=== PATIENT | female | born 1985 | race Caucasian/White ===

== ENCOUNTER 2017-12-29 14:14 | Emergency (ER) | payer OTHER ==
[2017-12-29 14:44] LABS: #Basophils 0.1 thou/uL (0.0-0.2); #Eosinphils 0.2 thou/uL (0.0-0.7); #Lymphocytes 2.7 thou/uL (1.20-3.40); #Monocytes 0.6 thou/uL (0.11-0.59); #Neutrophils 7.8 thou/uL (1.40-6.50); %Basophils 0.5 % (0.0-1.0); %Eosinophils 1.4 % (0.0-10.0); %Lymphocytes 23.7 % (21.0-51.0); %Monocytes 5.1 % (0.0-10.0); %Neutrophils 69.3 % (42.0-75.0); Mean Corpuscular HGB CONC 35.1 g/dL (32.0-36.0); Mean Corpuscular Hemoglobin 29.9 pg (27.0-31.0); Mean Corpuscular Volume 85.1 fL (78.0-98.0); Platelet Count 304 thou/uL (130-400); RBC Distribution Width 11.7 % (11.5-14.5); Red Blood Cell (RBC) Count 4.34 mill/uL (4.20-5.40); White Blood Cell (WBC) Count 11.2 thou/uL (4.8-10.8)
[2017-12-29 15:05] LABS: ALT (SGPT) 8 U/L (8-55); AST (SGOT) 12 U/L (5-34); Alkaline Phosphatase 80 U/L (40-150); Anion Gap 14 mmol/L (10-20); BUN (Urea Nitrogen) 10 mg/dL (7.0-18.7); Bilirubin, Total 0.6 mg/dL (0.2-1.2); CK (CPK) 46 U/L (29-168); Calc. Creatinine Clearance 0 mL/min (70-130); Carbon Dioxide 26 mmol/L (22-29); Chloride 102 mmol/L (98-107); Estimated GFR-MDRD 69; Globulin 2.6 g/dL (2.4-3.5); Glucose 161 mg/dL (70-105); Lipase 25 U/L (8-78); Potassium 3.9 mmol/L (3.5-5.1); Protein, Total 6.6 g/dL (6.0-8.3); Sodium 138 mmol/L (136-145)
[2017-12-29 15:09] LABS: CKMB 0.6 ng/mL (0-6.6); Troponin I Less than 0.010 ng/mL (< 0.028)
--- NOTE | 2017-12-29 15:55 | RAD ---
CHEST ONE VIEW PORTABLE: 12/29/17 HISTORY: 32-year-old female with history of chest pain, left sided with shortness of breath for four days. Heart size is within normal limits. The lungs are clear. No pneumonia, edema, or pleural effusion, or other acute intrathoracic disease. POS: [facility]
[2017-12-29] MEDS ORDERED: Mag-Al 1200 mg/1200 mg/30 ML UDCUP ONE (17:25)
[2017-12-29] MEDS ORDERED: Lidocaine Viscous Sol 2% 15 ml UD Cup ONE (17:25)
[2017-12-29] MEDS ORDERED: Morphine 10 MG/ML VIAL ONE (17:57)
[2017-12-29 18:39] LABS: Troponin I Less than 0.010 ng/mL (< 0.028)
[2017-12-29] MEDS ORDERED: Ketorolac Tromethamine 30 MG/ML VIAL ONE (18:43)
== END 2017-12-29 19:22 | disposition home or self-care (01) ==
LOC: ERS 14:14
DX: R09.1 Pleurisy (principal); R07.89 Other chest pain; J45.909 Unspecified asthma, uncomplicated; F32.9 Major depressive disorder, single episode, unspecified
CPT/HCPCS: 36415; 71045; 80053; 82553; 83690; 84484; 85025; 85379; 93005; 96372; J1885; J2270

== ENCOUNTER 2018-01-11 11:26 | Outpatient (CLI) | payer OTHER | END 2018-01-11 11:27 | disposition home or self-care (01) | LOC: DTY/OP 11:26 | PROVIDERS: ATTEND Surgery | DX: E66.01 Morbid (severe) obesity due to excess calories (principal) | CPT/HCPCS: 97802 ==

== ENCOUNTER 2018-04-08 15:41 | Outpatient (CLI) | payer OTHER ==
[2018-04-08 17:07] LABS: #Basophils 0.1 thou/uL (0.0-0.2); #Eosinphils 0.1 thou/uL (0.0-0.7); #Lymphocytes 2.5 thou/uL (1.20-3.40); #Monocytes 0.5 thou/uL (0.11-0.59); #Neutrophils 5.1 thou/uL (1.40-6.50); %Eosinophils 1.7 % (0.0-10.0); %Lymphocytes 30.3 % (21.0-51.0); Hemoglobin 13.9 g/dL (12.0-16.0); Mean Corpuscular HGB CONC 33.9 g/dL (32.0-36.0); Mean Corpuscular Hemoglobin 28.9 pg (27.0-31.0); Mean Corpuscular Volume 85.3 fL (78.0-98.0); Mean Platelet Volume 7.4 fL (7.4-10.4); Platelet Count 350 thou/uL (130-400); RBC Distribution Width 12.1 % (11.5-14.5); White Blood Cell (WBC) Count 8.3 thou/uL (4.8-10.8)
[2018-04-08 17:20] LABS: Hemoglobin A1c 5.5 % (4.0-6.0)
[2018-04-08 17:23] LABS: BHCG - Serum Negative (NEGATIVE); Pregs Control Background? CLEAR/WHITE (CLR/WHITE); Pregs Control Bar Appear? YES (CONTROL BAR)
[2018-04-08 17:30] LABS: ALT (SGPT) 10 U/L (8-55); AST (SGOT) 14 U/L (5-34); Albumin 4.1 g/dL (3.5-5.0); Alkaline Phosphatase 79 U/L (40-150); Anion Gap 10 mmol/L (10-20); BUN (Urea Nitrogen) 8 mg/dL (7.0-18.7); Bilirubin, Direct 0.3 mg/dL (0.1-0.3); Bilirubin, Total 0.7 mg/dL (0.2-1.2); Calc. Creatinine Clearance 0 mL/min (70-130); Calcium 9.1 mg/dL (7.8-10.44); Carbon Dioxide 27 mmol/L (22-29); Chloride 103 mmol/L (98-107); Estimated GFR-MDRD 84; Globulin 3.1 g/dL (2.4-3.5); Glucose 101 mg/dL (70-105); Potassium 3.6 mmol/L (3.5-5.1); Protein, Total 7.2 g/dL (6.0-8.3); Sodium 136 mmol/L (136-145)
== END 2018-04-08 15:42 | disposition home or self-care (01) ==
LOC: LABBT 15:41
PROVIDERS: ATTEND Surgery
DX: Z01.812 Encounter for preprocedural laboratory examination (principal); E66.01 Morbid (severe) obesity due to excess calories
CPT/HCPCS: 80053; 80076; 83036; 84703; 85025

== ENCOUNTER 2018-04-08 16:30 | Inpatient (IN) | payer OTHER ==
[2018-04-18] MEDS ORDERED: Heparin 5,000 UNITS/ML VIAL ONE (07:06)
[2018-04-18] MEDS ORDERED: Levofloxacin 500 mg/D5W 100 ml Premix Bag ONE (07:06)
[2018-04-18] MEDS ORDERED: Clindamycin/D5W 900 mg/50 ml Premix Bag ONE (07:07)
[2018-04-18] MEDS ORDERED: Bupivacaine/Epinephrine 0.25% 30 ML VIAL ONE (08:24)
[2018-04-18] MEDS ORDERED: Fentanyl 250 MCG/5 ML VIAL ONE (08:40)
[2018-04-18] MEDS ORDERED: Hydrocodone-Acetamin 15 ML UDCUP PO PRN (10:00)
[2018-04-18] MEDS ORDERED: Promethazine HCl 25 MG/ML VIAL IM PRN ×3 (10:00→10:44)
[2018-04-18] MEDS ORDERED: Dextrose 50% Abboject 50 ML SYRINGE SLOW IVP PRN (10:00)
[2018-04-18] MEDS ORDERED: hydrALAZINE 20 MG/ML VIAL SLOW IVP PRN (10:00)
[2018-04-18] MEDS ORDERED: Ondansetron PF 4 MG/2 ML Vial IVP PRN ×2 (10:00→10:44)
[2018-04-18] MEDS ORDERED: Dextrose 5% in Water 1,000 ML IV PRN (10:00)
[2018-04-18] MEDS ORDERED: diphenhydrAMINE 50 MG/ML VIAL IVP PRN ×2 (10:00→10:44)
[2018-04-18] MEDS ORDERED: Meperidine HCl/PF 25 MG/ML VIAL SLOW IVP PRN (10:13)
[2018-04-18] MEDS ORDERED: Promethazine HCl 25 MG/ML VIAL SLOW IVP PRN (10:13)
[2018-04-18] MEDS ORDERED: Ondansetron HCl/PF 4 MG/2 ML Vial IVP PRN (10:13)
[2018-04-18] MEDS ORDERED: Fentanyl 100 MCG/2 ML VIAL ONE (10:28)
[2018-04-18] MEDS ORDERED: Promethazine HCl 25 MG/ML VIAL ONE (10:28)
--- NOTE | 2018-04-18 10:29 | OP ---
DATE OF PROCEDURE: 04/18/2018 PREOPERATIVE DIAGNOSIS: Morbid obesity. PROCEDURES PERFORMED: Laparoscopic sleeve gastrectomy and esophagogastroscopy. INDICATIONS: A 32-year-old female, morbidly obese, who has attempted multiple weight loss programs without success. FINDINGS: A 38-[place] bougie was used. DESCRIPTION OF PROCEDURE: After informed consent was obtained, the patient was taken to the operating room and given general endotracheal anesthesia, placed in supine position. Abdomen was prepped and draped in usual fashion. Local anesthesia was infiltrated subcutaneously and deep, and a 12 mm incision was performed approximately 8-inch below the xiphoid slightly to the left. Veress needle inserted. Drop test performed. Pneumoperitoneum was created to a volume of 2 L of carbon dioxide. Utilizing a bladeless 12 mm trocar and 0-degree laparoscope, direct visual entry into the abdominal cavity performed. Pneumoperitoneum was then created to a pressure of 15 mmHg and the patient placed in steep reverse Trendelenburg position. Alix liver retractor inserted, and the left lobe of the liver retracted superiorly. Pylorus identified. A 12-mm port placed on the right beneath it and two 12s placed left subcostal. The omentum was taken off the greater curvature 5 cm from the pylorus utilizing a LigaSure. Short gastrics divided with LigaSure. Left crura defined with LigaSure. A 38-[place] bougie inserted directed into the antrum. The linear 60-mm green load stapler used to divide the antrum to the bougie, gold load along the bougie, and a series of blue through the angle of His. Intraoperative endoscopy was performed. The video endoscope inserted under direct vision and advanced into the sleeve. Staple line inspected. There was no bleeding. Staple line then tested by inflating the new stomach with pressurized air under water. There was no air leak. Stomach decompressed. Scope removed. The remnants of the stomach removed from the abdomen through the left lateral port site. The fascia closed with 0-Vicryl suture and the GraNee needle. Trocars and retractors removed. The skin was closed with interrupted 4-0 Rapide. Dermabond applied. The patient tolerated the procedure well, transferred to recovery in good condition. Sponge and needle count verified correct x2. Job ID: [id number]
[2018-04-18] MEDS ORDERED: Ketorolac Tromethamine 30 MG/ML VIAL IVP PRN (10:44)
[2018-04-18] MEDS ORDERED: diphenhydrAMINE 50 MG/ML VIAL IM PRN (10:44)
[2018-04-18] MEDS ORDERED: Naloxone HCl 0.4 mg/ml Vial IV PRN (10:44)
[2018-04-18] MEDS ORDERED: fentaNYL Citrate/PF 2,000 MCG in Sodium Chloride 0.9% 60 ML IV PRN (10:44)
[2018-04-18] MEDS ORDERED: diphenhydrAMINE 25 MG CAP PO PRN (10:44)
[2018-04-18] MEDS ORDERED: Zolpidem Tartrate 5 MG TAB PO PRN (10:44)
[2018-04-18] MEDS ORDERED: Communication Order-Pharmacy FS SCH (10:45)
[2018-04-18 11:49] VITALS: BMI 39.1
[2018-04-18] MEDS: Ketorolac Tromethamine 30 MG/ML VIAL IVP SCH ×2 (15:43→17:57)
[2018-04-18] MEDS: D5 1/2 NS w/20 mEq KCL 1,000 ML IV SCH ×2 (15:50→21:18)
[2018-04-18] MEDS ORDERED: Lidocaine 1% PF 5 ML VIAL ONE (20:32)
[2018-04-18] MEDS ORDERED: Ketorolac Tromethamine 30 MG/ML VIAL ONE (20:32)
[2018-04-18] MEDS ORDERED: Esmolol 100 MG/10 ML VIAL ONE (20:32)
[2018-04-18] MEDS ORDERED: Glycopyrrolate 0.2 MG/ML 5 ML SYRINGE ONE (20:32)
[2018-04-18] MEDS ORDERED: PHENYLEPHRINE-NS 100 MCG/ML 10 ML SYRINGE ONE (20:32)
[2018-04-18] MEDS ORDERED: ePHEDrine/0.9% NaCl/PF SYRINGE 50 mg/10 ml ONE (20:32)
[2018-04-18] MEDS ORDERED: Ondansetron PF 4 MG/2 ML Vial ONE (20:32)
[2018-04-18] MEDS ORDERED: Dexamethasone 20 MG/5 ML VIAL ONE (20:32)
[2018-04-18] MEDS ORDERED: PROPOFOL 200 MG/20 ML VIAL ONE (20:32)
[2018-04-19] MEDS: Ketorolac Tromethamine 30 MG/ML VIAL IVP SCH ×3 (00:29→16:56)
[2018-04-19] MEDS: D5 1/2 NS w/20 mEq KCL 1,000 ML IV SCH ×2 (05:05→09:05)
[2018-04-19 06:42] LABS: #Lymphocytes 2.1 thou/uL (1.20-3.40); #Neutrophils 8.9 thou/uL (1.40-6.50); %Basophils 0.1 % (0.0-1.0); %Eosinophils 0.2 % (0.0-10.0); %Lymphocytes 17.4 % (21.0-51.0); %Monocytes 7.9 % (0.0-10.0); %Neutrophils 74.4 % (42.0-75.0); Hemoglobin 12.2 g/dL (12.0-16.0); Mean Corpuscular Hemoglobin 28.8 pg (27.0-31.0); Mean Corpuscular Volume 84.6 fL (78.0-98.0); Mean Platelet Volume 7.3 fL (7.4-10.4); Platelet Count 255 thou/uL (130-400); RBC Distribution Width 11.9 % (11.5-14.5); Red Blood Cell (RBC) Count 4.24 mill/uL (4.20-5.40)
[2018-04-19 07:01] LABS: Anion Gap 9 mmol/L (10-20); BUN (Urea Nitrogen) 7 mg/dL (7.0-18.7); Calc. Creatinine Clearance 189 mL/min (70-130); Calcium 8.6 mg/dL (7.8-10.44); Carbon Dioxide 24 mmol/L (22-29); Chloride 109 mmol/L (98-107); Estimated GFR-MDRD 81; Glucose 120 mg/dL (70-105); Potassium 4.4 mmol/L (3.5-5.1); Sodium 138 mmol/L (136-145)
[2018-04-19] MEDS ORDERED: Enoxaparin Sodium 40 MG/0.4 ML SYRINGE SC SCH (09:00)
[2018-04-19] MEDS ORDERED: Pantoprazole 40 MG VIAL IVP SCH (09:00)
--- NOTE | 2018-04-19 10:17 | RAD ---
UPPER GI SINGLE CONTRAST: HISTORY: Postop vertical sleeve. COMPARISON: None. FINDINGS: The patient is brought to the fluoroscopy suite. All questions were answered. The patient was given 15 mL of water-soluble contrast. There was delay in transit past the GE unction for the 1st 10 diane brandon. After approximately 10 minutes, contrast was seen transiting through the stomach. No evidence of leak. IMPRESSION: No evidence of leak. POS: [facility]
[2018-04-19 16:09] VITALS: BP 113/74; TEMP 98.1
--- NOTE | 2018-04-21 01:28 | DIS ---
DATE OF ADMISSION: 04/18/2018 DATE OF DISCHARGE: 04/19/2018 DISCHARGE DIAGNOSIS: Morbid obesity. PROCEDURES DURING ADMISSION: Laparoscopic sleeve gastrectomy, intraoperative esophagogastroscopy, and postoperative Gastrografin swallow. HOSPITAL COURSE: The patient was admitted, taken to the operating room, where she underwent sleeve gastrectomy. Postoperatively, she has done well. She is tolerating liquids well. She was discharged home. Pain controlled on p.o. medications. She will follow up with me in 2 weeks. Job ID: [id number]
== END 2018-04-19 16:57 | disposition home or self-care (01) | DRG 621 ==
LOC: SURG A 04-18 06:19 → SJJU 04-18 11:37
PROVIDERS: ADMIT Surgery; ATTEND Surgery
PROC: 0DB64Z3 Excision of Stomach, Percutaneous Endoscopic Approach, Vertical (ICD-10-PCS; principal; 2018-04-18)
DX: E66.01 Morbid (severe) obesity due to excess calories (principal); Z68.39 Body mass index [BMI] 39.0-39.9, adult; J45.909 Unspecified asthma, uncomplicated; Z88.1 Allergy status to other antibiotic agents; Z88.0 Allergy status to penicillin
CPT/HCPCS: 36415; 74241; 80048; 85025; 88307; 88312; 94760; C9113; J0131; J1100; J1644; J1650; J1885; J1956; J2001; J2405; J2550; J2704; J3010; J3490; J7050

== ENCOUNTER 2019-10-08 19:25 | Emergency (ER) | payer OTHER ==
[2019-10-08 20:52] LABS: #Basophils 0.1 thou/uL (0.0-0.2); #Eosinphils 0.1 thou/uL (0.0-0.7); #Lymphocytes 1.8 thou/uL (1.20-3.40); #Monocytes 0.7 thou/uL (0.11-0.59); #Neutrophils 7.3 thou/uL (1.40-6.50); %Basophils 0.9 % (0.0-1.0); %Eosinophils 1.4 % (0.0-10.0); %Lymphocytes 17.7 % (21.0-51.0); %Monocytes 7.3 % (0.0-10.0); %Neutrophils 72.8 % (42.0-75.0); Hemoglobin 12.3 g/dL (12.0-16.0); Mean Corpuscular Hemoglobin 28.1 pg (27.0-31.0); Mean Corpuscular Volume 85.1 fL (78.0-98.0); Mean Platelet Volume 7.7 fL (7.4-10.4); Platelet Count 329 thou/uL (130-400); RBC Distribution Width 11.7 % (11.5-14.5); Red Blood Cell (RBC) Count 4.38 mill/uL (4.20-5.40)
[2019-10-08 21:14] LABS: ALT (SGPT) Less than 7 U/L (8-55); AST (SGOT) 11 U/L (5-34); Albumin 3.9 g/dL (3.5-5.0); Alkaline Phosphatase 81 U/L (40-110); Anion Gap 11 mmol/L (10-20); BUN (Urea Nitrogen) 8 mg/dL (7.0-18.7); Bilirubin, Total 0.3 mg/dL (0.2-1.2); Calc. Creatinine Clearance 0 mL/min (70-130); Calcium 8.5 mg/dL (7.8-10.44); Carbon Dioxide 25 mmol/L (22-29); Chloride 106 mmol/L (98-107); Estimated GFR-MDRD 82; Globulin 2.8 g/dL (2.4-3.5); Glucose 85 mg/dL (70-105); Potassium 3.7 mmol/L (3.5-5.1); Protein, Total 6.7 g/dL (6.0-8.3); Sodium 138 mmol/L (136-145)
[2019-10-08 21:43] LABS: Bacteria/HPF None Seen HPF (None Seen); Bilirubin Negative (Negative); Blood, Urine 2+ (Negative); Clarity Clear (Clear); Glucose, Urine (Dipstick) Normal (Negative); Leukocyte Negative Leu/uL (Negative); Nitrite Negative (Negative); Protein, Urine (Dipstick) Negative (Neg-Trace); RBC/HPF 21-50 HPF (0-3); Squamous Epithelial 0-3 HPF (0-3); Urobilinogen Normal mg/dL (Less than 2); WBC/HPF 0-3 HPF (0-3)
[2019-10-08 21:50] LABS: Pregnancy Test - Urine (BHCG) Negative (Negative); Pregu Control Background? CLEAR/WHITE (CLR/WHITE); Pregu Control Bar Appear? YES (CONTROL BAR); Specific Gravity 1.015 (1.002-1.036)
[2019-10-08] MEDS ORDERED: Acetaminophen 500 MG TAB ONE (22:50)
--- NOTE | 2019-10-11 14:32 | EKG ---
Test Reason : Blood Pressure : / mmHG Vent. Rate : 074 BPM Atrial Rate : 074 BPM P-R Int : 138 ms QRS Dur : 080 ms QT Int : 404 ms P-R-T Axes : 062 064 028 degrees QTc Int : 448 ms Normal sinus rhythm with sinus arrhythmia Normal ECG Confirmed by GUERO NGO ([id number]), assignment editor ROWENA GOMEZ ([id number] on 10/11/2019 2:31:47 PM Referred By: Confirmed By:GUERO Watts
== END 2019-10-08 23:23 | disposition home or self-care (01) ==
LOC: ERS 19:25
DX: R55 Syncope and collapse (principal); J45.909 Unspecified asthma, uncomplicated
CPT/HCPCS: 80053; 81003; 81015; 81025; 85025; 93005; 96360; 96361